=== PATIENT | male | born 1995 | race Caucasian/White ===

== ENCOUNTER 2018-06-09 16:54 | Emergency (ER) | payer OTHER ==
[~2018-06-09] VITALS: Ht 175.3 cm; Wt 94.3 kg
[2018-06-09 17:08] VITALS: Ht 175.3 cm; Wt 94.3 kg
[2018-06-09] MEDS ORDERED: ACETAMINOPHEN 325 MG TAB PO ONE (18:00)
[2018-06-09] MEDS ORDERED: ACET500C5 PO (20:15)
[2018-06-09] MEDS ORDERED: CYCL10TA7 PO (20:20)
[2018-06-09 20:28] VITALS: BP 125/80; PULSE 85; RESP 20
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
== END 2018-06-09 20:29 | disposition home or self-care (01) ==
LOC: FTE 16:54
DX: S63.501A Unspecified sprain of right wrist, initial encounter (principal); S39.92XA Unspecified injury of lower back, initial encounter; R93.0 Abnormal findings on diagnostic imaging of skull and head, not elsewhere classified; V89.2XXA Person injured in unspecified motor-vehicle accident, traffic, initial encounter
CPT/HCPCS: 70450; 72100; 73110; 73130; Z7502; Z7610